=== PATIENT | female | born 1985 | race Caucasian/White ===

== ENCOUNTER 2022-01-06 11:57 | Day surgery (SDC) | payer OTHER ==
[2022-01-06] MEDS ORDERED: LIDOCAINE HCL 2% 100 MG/5 ML IH ONE (11:58)
[2022-01-06] MEDS ORDERED: Lactated Ringers 1,000 ML IV ONE (15:19)
[2022-01-06] MEDS ORDERED: DIPRIVAN 200 MG/20 ML IV ONE (15:22)
--- NOTE | 2022-01-06 16:58 | XRAY ---
9 seconds fluoroscopy time in surgery for bilateral L4-S1 MBB.
--- NOTE | 2022-01-06 16:58 | XRAY ---
Indication: Bilateral L4-S1 MBB. Intraoperative fluoroscopy provided for 9 seconds. Single digital spot image submitted for interpretation demonstrates posterior needle tips projecting over the expected left and right L4-S1 nerve roots. Correlate with intraoperative findings/report.
== END 2022-01-06 15:38 | disposition home or self-care (01) ==
LOC: SDC-PAIN 11:57
PROVIDERS: ATTEND Psychiatry & Neurology Pain Medicine
DX: M47.816 Spondylosis without myelopathy or radiculopathy, lumbar region (principal); Z79.899 Other long term (current) drug therapy
CPT/HCPCS: 64493; 64494; 72020; 77002; 84703; J2704